=== PATIENT | male | born 1965 | race Two or more races ===

== ENCOUNTER 2022-08-31 08:47 | Day surgery (SDC) | payer MEDICARE, MEDICAID, SELFPAY ==
--- NOTE | 2022-08-30 13:14 | HO.ANESPROP2 ---
Documented by User: Tamara Huston NP 08/30/22 14:07 HPI - Anesthesia Eval Consult details Narrative: 57yo M for Xiphoidectomy open resection Hx cocaine abuse per PCP note PMFSH Past Medical History Medical History (Updated 08/30/22 @ 12:16 by Meliza Will RN) Anxiety Arthritis Asthma Bipolar affective disorder Depression Diabetes Fatigue History of wrist fracture Hx of fracture of clavicle Insomnia Paranoia PTSD (post-traumatic stress disorder) Rage attacks Schizophrenia Smoker Vitamin D deficiency Surgical History Surgical History (Updated 08/30/22 @ 12:14 by Meliza Will RN) Hx of total knee replacement Social History Social History Patient Tobacco Use Status: Current someday Tobacco user Tobacco use type: Cigarette Years Smoked: 40 Smoked in Last 30 Days: Yes Use of substances other than those prescribed or required for medical reasons: Yes Substance Use Frequency: Chronic Longstanding Are you DNR?: No Advance Directives: No Advance Directives Information Provided: Yes Meds Allergies Allergy/AdvReac Type Severity Reaction Status Date / Time No Known Allergies Allergy Verified 08/31/22 10:18 Home Medications Medication Instructions Recorded Confirmed Last Taken Type Xopenex 08/30/22 Unknown History albuterol sulfate 1.25 mg/3 mL 1 vial inhalation Q6H PRN wheezing 08/30/22 08/30/22 Unknown History solution for nebulization albuterol sulfate 90 mcg/actuation 1 puff inhalation Q6H PRN wheezing 08/30/22 08/30/22 Unknown History aerosol inhaler ammonium lactate 12 % lotion topical NEEDED 08/30/22 Unknown History baclofen 10 mg tablet 1 tab PO BID 08/30/22 08/30/22 Unknown History clotrimazole 1 % topical cream appl topical BID 08/30/22 Unknown History diclofenac sodium 1 % topical gel g topical BID 08/30/22 Unknown History fluticasone propionate 110 1 puff inhalation BID 08/30/22 08/30/22 Unknown History mcg/actuation HFA aerosol inhaler (Flovent HFA) fluticasone propionate 50 intranasal DAILY 08/30/22 Unknown History mcg/actuation nasal spray,suspension gabapentin 600 mg tablet 1 tab PO BID 08/30/22 08/30/22 Unknown History ketotifen fumarate 0.025 % (0.035 1 drp ophthalmic (eye) BID 08/30/22 08/30/22 Unknown History %) eye drops metformin 500 mg tablet 1 tab PO BID 08/30/22 08/31/22 08/29/22 History quetiapine 200 mg tablet 1 tab PO BEDTIME 08/30/22 08/30/22 Unknown History ramelteon 8 mg tablet 1 tab PO BEDTIME PRN insomnia 08/30/22 08/30/22 Unknown History sennosides 8.6 mg-docusate sodium 1 tab PO DAILY PRN constipation 08/30/22 08/30/22 Unknown History 50 mg tablet (Senna-Time S) sertraline 100 mg tablet 1 tab PO DAILY 08/30/22 08/30/22 Unknown History Exam Exam Date and Time: August 30, 2022 1314 Pertinent Lab Results Pertinent Lab Results: 08/17/22 A1C 6.4 BUN 12 Creat 0.96 Na 138 K 4.0 Cl 101 CO2 23 WBC 7.6 Hgb 16.9 Hct 47.9 Plt 169 Assessment and Plan Assessment Anesthesia Assessment: Chart Reviewed Documented by User: Sailaja Hartley MD 08/31/22 11:11 PMF Past Medical History Medical History (Updated 08/30/22 @ 12:16 by Meliza Will RN) Anxiety Arthritis Asthma Bipolar affective disorder Depression Diabetes Fatigue History of wrist fracture Hx of fracture of clavicle Insomnia Paranoia PTSD (post-traumatic stress disorder) Rage attacks Schizophrenia Smoker Vitamin D deficiency Family History Family history of problems with anesthesia: No Surgical History Surgical History (Updated 08/30/22 @ 12:14 by Meliza Will, RN) Hx of total knee replacement History of Problems with Anesthesia: No Social History Social History Patient Tobacco Use Status: Current someday Tobacco user Tobacco use type: Cigarette Years Smoked: 40 Smoked in Last 30 Days: Yes Use of substances other than those prescribed or required for medical reasons: Yes Substance Use Frequency: Chronic Longstanding Are you DNR?: No Advance Directives: No Advance Directives Information Provided: Yes Meds Allergies Allergy/AdvReac Type Severity Reaction Status Date / Time No Known Allergies Allergy Verified 08/31/22 10:18 Home Medications Medication Instructions Recorded Confirmed Last Taken Type Xopenex 08/30/22 Unknown History albuterol sulfate 1.25 mg/3 mL 1 vial inhalation Q6H PRN wheezing 08/30/22 08/30/22 Unknown History solution for nebulization albuterol sulfate 90 mcg/actuation 1 puff inhalation Q6H PRN wheezing 08/30/22 08/30/22 Unknown History aerosol inhaler ammonium lactate 12 % lotion topical NEEDED 08/30/22 Unknown History baclofen 10 mg tablet 1 tab PO BID 08/30/22 08/30/22 Unknown History clotrimazole 1 % topical cream appl topical BID 08/30/22 Unknown History diclofenac sodium 1 % topical gel g topical BID 08/30/22 Unknown History fluticasone propionate 110 1 puff inhalation BID 08/30/22 08/30/22 Unknown History mcg/actuation HFA aerosol inhaler (Flovent HFA) fluticasone propionate 50 intranasal DAILY 08/30/22 Unknown History mcg/actuation nasal spray,suspension gabapentin 600 mg tablet 1 tab PO BID 08/30/22 08/30/22 Unknown History ketotifen fumarate 0.025 % (0.035 1 drp ophthalmic (eye) BID 08/30/22 08/30/22 Unknown History %) eye drops metformin 500 mg tablet 1 tab PO BID 08/30/22 08/31/22 08/29/22 History quetiapine 200 mg tablet 1 tab PO BEDTIME 08/30/22 08/30/22 Unknown History ramelteon 8 mg tablet 1 tab PO BEDTIME PRN insomnia 08/30/22 08/30/22 Unknown History sennosides 8.6 mg-docusate sodium 1 tab PO DAILY PRN constipation 08/30/22 08/30/22 Unknown History 50 mg tablet (Senna-Time S) sertraline 100 mg tablet 1 tab PO DAILY 08/30/22 08/30/22 Unknown History Exam Airway Mallampati Class: III TM Dist: >3cm Neck ROM: Full Assessment and Plan Assessment Anesthesia Assessment: Anesthesia Plan Discussed Final Anesthetic Review Family History of Problems with Anesthesia: No History of Problems with Anesthesia: No NPO: Yes ASA Class: III Final Preanesthetic Review: No Changes in Pt Med Stat, Meds/Allgs Chart Reviewed, Consent Obtained/Reviewed and Anes Risks/Benef Reviewed Patient Risk: Intermediate Procedure Risk: Intermediate Anesthetic Plan Anesthetic Plan: GA Disposition: Standard PACU
[2022-08-31] VITALS (8 sets, daily range): BP systolic 114–128; BP diastolic 67–89; PULSE 69–83; RESP 14–16; TEMP 36.4–36.9; O2SAT 93–97; BMI 33.9
--- NOTE | 2022-08-31 | ECG_ITS ---
Test Reason : PRE OP Blood Pressure : / mmHG Vent. Rate : 069 BPM Atrial Rate : 069 BPM P-R Int : 158 ms QRS Dur : 096 ms QT Int : 392 ms P-R-T Axes : 040 -43 -13 degrees QTc Int : 420 ms Normal sinus rhythm Left anterior fascicular block Minimal voltage criteria for LVH, may be normal variant ( R in aVL ) Abnormal ECG No previous ECGs available Referred By: Tamara Huston Electronically Signed By:CECIL SOLANO MD
[2022-08-31 09:37] LABS: Amphetamine Screen Urine Not Detected (Not Detect); Barbiturates, Urine Not Detected (Not Detect); Benzodiazepines Screen Urine Not Detected (Not Detect); Cannabinoid Screen Urine Not Detected (Not Detect); Cocaine Screen Urine Not Detected (Not Detect); Fentanyl, urine Not Detected (Not Detect); Opiate Screen Urine Not Detected (Not Detect); Phencyclidine Screen Urine Not Detected (Not Detect)
[2022-08-31 10:56] LABS: Glucose, Whole Blood 125 mg/dL (60-115)
[2022-08-31] MEDS: Lactated Ringers 1,000 ML 100 ML IVCONT (11:03)
--- NOTE | 2022-08-31 11:41 | MHC.SHP ---
Pre-Procedural Eval Section A Date of Service: 08/31/22 The patient is an INPATIENT: No The History & Physical has been completed within 30 days and I have reviewed it.: Yes Section B Chief Complaint: Other chest pain Allergies: Allergies Allergy/AdvReac Type Severity Reaction Status Date / Time No Known Allergies Allergy Verified 08/31/22 10:18 Plan I have reviewed the history and physical and performed a pertinent physical examination on my patient. No changes have occurred unless specified. Plan for xiphoid removal
--- NOTE | 2022-08-31 12:52 | P.OP_ITS ---
Operative Note Operative Note Date of Service: 08/31/22 Narrative: Preoperative diagnosis: Xiphoid pain Postoperative diagnosis: Same Operation: Removal of xiphoid Surgeon: Renee Paul MD [place] Repairer: Narendra Estrada Anesthesia: General Specimens: Xiphoid to pathology EBL: 5 cc Operation in detail: The patient was brought to the operating room, placed supine on the operative table, anesthesia monitoring devices were placed, and the patient was intubated without difficulty. The upper abdomen and lower chest were then widely prepped and draped in a standard sterile fashion. A time-out was performed to confirmed the correct patient, site, and procedure. After injection of local anesthetic, a 4 cm incision was made directly over the xiphoid. This is carried down through the rectus sheath directly onto the xiphoid exposing the very tip of the xiphoid. Dissecting around the edges of the xiphoid and disconnecting its attachments up to the base of the sternum. Once we had done this circumferentially the xiphoid was grasped with a [place] and a heavy Mcgarry scissor was used to excise the majority of the xiphoid. There did appear to be a bifid remnant of the xiphoid still left and this was removed to the base of the sternum with a rongeur and retraction from the bedside apartment community assistant manager. Hemostasis was then assured. The fascia was then closed with a running 0 Vicryl suture followed by running 3- 0 Vicryl suture and Exofin glue for the skin. He tolerated the procedure well, was extubated in the operating room, and brought to the recovery room in stable condition.
[2022-08-31] MEDS: oxyCODONE HCl Immed Release 5 MG TABLET 10 MG PO (13:42)
== END 2022-08-31 15:40 | disposition home or self-care (01) ==
PROVIDERS: Nurse Practitioner; PCP Physician Assistant Medical; Visit Provider Surgery
PROC: (CPT 21620; principal; 2022-08-31 10:50)
DX: R07.89 Other chest pain (principal); R53.83 Other fatigue; M19.90 Unspecified osteoarthritis, unspecified site; E11.9 Type 2 diabetes mellitus without complications; J45.20 Mild intermittent asthma, uncomplicated; F20.9 Schizophrenia, unspecified; F06.33 Mood disorder due to known physiological condition with manic features; G47.00 Insomnia, unspecified; F22 Delusional disorders; E55.9 Vitamin D deficiency, unspecified; Z79.51 Long term (current) use of inhaled steroids; Z79.84 Long term (current) use of oral hypoglycemic drugs; Z79.899 Other long term (current) drug therapy; F17.210 Nicotine dependence, cigarettes, uncomplicated
CPT/HCPCS: 21620; 80307; 82947; 88304; 88311; 93005; J0131; J0690; J1100; J2250; J2405; J3010